=== PATIENT | female | born 1990 | race Hispanic/Latino ===

== ENCOUNTER 2017-04-14 21:20 | Emergency (ER) | payer BC ==
[2017-04-14 21:29] VITALS: BP 124/85; PULSE 89; RESP 16; TEMP 98.3; O2SAT 99
[2017-04-14] MEDS ORDERED: Naproxen 500 MG TAB PO STA (21:58)
--- NOTE | 2017-04-14 22:00 | ED PDOC ---
Upper Extremity Pain/Injury Time Seen by Provider: 04/14/17 21:45 Chief Complaint (Nursing): Upper Extremity Problem/Injury Chief Complaint (Provider): Right 4th digit swelling History Per: Patient History/Exam Limitations: no limitations Onset/Duration Of Symptoms: Mins Current Symptoms Are (Timing): Still Present Additional Complaint(s): The patient is a 26yo female, no known past medical history, right hand dominant , presents to the ED for evaluation of spontaneous swelling to her right 4th digit. Patient denies any bite, injury or recent strenuous activity using her hands. She also denies any trauma or injury to her hand. Patient notes she was cracking fingers the day prior. Of note, patient is wearing a ring on her right 4th digit and attempted removal of ring without success today.. No other medical complaints. Past Medical History Reviewed: Historical Data, Nursing Documentation, Vital Signs Vital Signs: Last Vital Signs Temp 98.3 F 04/14/17 21:26 Pulse 89 04/14/17 21:26 Resp 16 04/14/17 21:26 BP 124/85 04/14/17 21:26 Pulse Ox 99 04/14/17 21:26 - Medical History PMH: No Chronic Diseases - Surgical History Surgical History: No Surg Hx - Family History Family History: States: No Known Family Hx - Home Medications Home Medications: Ambulatory Orders Medication Instructions Recorded Ondansetron ODT [Zofran ODT] 4 mg PO Q8 PRN #12 odt 01/06/16 Naproxen 1 tab PO Q12 PRN #14 tab 04/14/17 - Allergies Allergies/Adverse Reactions: Allergies Allergy/AdvReac Type Severity Reaction Status Date / Time No Known Allergies Allergy Verified 01/05/16 23:36 Review of Systems ROS Statement: Except As Marked, All Systems Reviewed And Found Negative Musculoskeletal: Positive for: Other (swelling to right 4th digit) Physical Exam - Reviewed Nursing Documentation Reviewed: Yes Vital Signs Reviewed: Yes - Physical Exam Appears: Positive for: Well, Non-toxic, No Acute Distress Head Exam: Positive for: ATRAUMATIC, NORMAL INSPECTION, NORMOCEPHALIC Skin: Positive for: Normal Color, Warm, DRY Eye Exam: Positive for: Normal appearance Neck: Positive for: Normal Respiratory: Negative for: Respiratory Distress Extremity: Positive for: Normal ROM, Swelling (diffuse edema to right 4th digit , no erythema or ecchymosis. normal ROM, normal capillary refill). Negative for : Deformity Neurologic/Psych: Positive for: Alert, Oriented. Negative for: Motor/Sensory Deficits - ECG O2 Sat by Pulse Oximetry: 99 (RA) Pulse Ox Interpretation: Normal - Progress ED Course And Treament: XRY OF FINGER: NO ACUTE FX PLACED IN FINGER SPLINT. ADVISED F/U WITH HAND FOR PERSISTENT SWELLING. Medical Decision Making Medical Decision Making: Time: 0950 Impression: Swelling to right 4th digit at PIP Plan: -- Provider initially attempted to remove ring without cutting it however was unsuccessful. Patient given ice to apply to the finger and provider will attempt to remove the ring by cutting it. -- Naproxen 500 mg PO Verbal consent obtained prior procedure. Ring removed with wrap around technique. Finger re-examined after removal with swelling resolved. Scribe Attestation: Documented by Isela Rob acting as a scribe for SHARDA Rai Provider Attestation: All medical record entries made by the Scribe were at my direction and personally dictated by me. I have reviewed the chart and agree that the record accurately reflects my personal performance of the history, physical exam, medical decision making, and the department course for this patient. I have also personally directed, reviewed, and agree with the discharge instructions and disposition. Disposition - Clinical Impression Clinical Impression: Swollen finger, Finger joint swelling - Patient ED Disposition Is Patient to be Admitted: No - Disposition Referrals: Froilan Jennings MD [Staff Provider] - Disposition: Routine/Home Disposition Time: 22:31 Condition: FAIR Prescriptions: Naproxen 1 tab PO Q12 PRN #14 tab PRN Reason: Pain, Moderate (4-7) Instructions: Swollen Joint (ED) Forms: [facility] (Danish)
--- NOTE | 2017-04-15 09:02 | RAD ---
PROCEDURE: Right ring finger radiographs. HISTORY: FINGER INJURY COMPARISON: None. TECHNIQUE: AP radiograph of the right hand, as well as spot oblique and lateral images of ring finger were obtained. FINDINGS: RIGHT RING FINGER: Normal right ring finger, without fracture or focal lesion. Remainder of the right hand (as seen on the AP view) grossly unremarkable. JOINTS: Normal. SOFT TISSUES: Normal. OTHER FINDINGS: None. IMPRESSION: Normal right ring finger radiographs.
== END 2017-04-14 23:14 | disposition home or self-care (01) ==
LOC: H.ER 21:20
DX: R22.31 Localized swelling, mass and lump, right upper limb (principal)